=== PATIENT | male | born 1935 | race Hispanic/Latino ===

== ENCOUNTER 2019-08-15 10:41 | Emergency (ER) | payer OTHER ==
[~2019-08-15 10:41] MED LIST: ATOR10 PO; FINA5TAB41 PO; LISI-613 PO; MULT-1203 PO; TAMS0.4C32 PO; TRAV5DRO OU
[2019-08-15 11:35] LABS: BASOPHILS % (AUTO) 0.3 % (0.0-5.0); HEMATOCRIT 42.2 % (42-54); MEAN CORPUSCULAR HEMOGLOBIN 30.2 pg (27.0-33.0); MEAN CORPUSCULAR HGB CONC 33.2 g/dL (32.0-36.0); MEAN CORPUSCULAR VOLUME 90.9 fL (79-99); MONOCYTES % (AUTO) 6.6 % (3.0-13.0); NEUTROPHILS % (AUTO) 64.8 % (40.0-77.0); PLATELET COUNT (AUTO) 145 K/uL (130-400); RED BLOOD CELL COUNT(AUTO) 4.64 MIL/uL (4.50-6.20); RED CELL DISTRIBUTION WIDTH 12.5 % (11.0-15.5); WHITE BLOOD COUNT (AUTO) 6.1 K/uL (4.8-10.8)
[2019-08-15 11:39] LABS: B-TYPE NATRIURETIC PEPTIDE 89 pg/mL (0-100)
[2019-08-15 11:41] LABS: INR 0.99 (0.85-1.15); PARTIAL THROMBOPLASTIN TIME 23.6 SEC (26.3-35.5); PROTHROMBIN TIME 10.7 SEC (9.6-11.6)
[2019-08-15 11:43] LABS: CREATININE 0.8 mg/dL (0.5-1.5); POTASSIUM 3.9 mmol/L (3.5-5.1)
[2019-08-15 11:50] LABS: BILIRUBIN,TOTAL 0.7 mg/dL (0.2-1.0); TOTAL PROTEIN, SERUM 7.1 g/dL (6.0-8.3)
== END 2019-08-15 13:05 | disposition home or self-care (01) ==
LOC: EDH 10:41
DX: I10 Essential (primary) hypertension (principal); R53.1 Weakness; R20.2 Paresthesia of skin; R79.1 Abnormal coagulation profile
CPT/HCPCS: 36415; 70450; 71045; 80053; 82550; 83880; 84484; 85025; 85610; 85730; 93005